=== PATIENT | female | born 1975 | race Caucasian/White ===

== ENCOUNTER → 2020-06-25 | Outpatient (CLI) | payer OTHER ==
[2020-06-25 15:08] LABS: PROLACTIN 15.2 ng/mL (4.8-23.3); TESTOSTERONE 9 ng/dL (8-48)
[2020-06-25 23:06] LABS: GLYCOHEMOGLOBIN (HGB A1C) 4.9 % (4.8-5.6)
== END ==
LOC: M.LAB 07:50
PROVIDERS: ATTEND Obstetrics & Gynecology
DX: Z12.31 Encounter for screening mammogram for malignant neoplasm of breast (principal); Z01.419 Encounter for gynecological examination (general) (routine) without abnormal findings; N94.3 Premenstrual tension syndrome

== ENCOUNTER → 2020-06-30 | Outpatient (CLI) | payer OTHER | LOC: M.ULTRA 08:52 | PROVIDERS: ATTEND Obstetrics & Gynecology | DX: N63.10 Unspecified lump in the right breast, unspecified quadrant (principal); N63.20 Unspecified lump in the left breast, unspecified quadrant; N60.01 Solitary cyst of right breast; N60.02 Solitary cyst of left breast ==